=== PATIENT | female | born 1970 | race Caucasian/White ===

== ENCOUNTER 2018-02-17 15:06 | Outpatient (CLI) | payer MEDICARE ==
--- NOTE | 2018-02-17 16:01 | MMO ---
BILATERAL DIGITAL SCREENING MAMMOGRAMS: Date: 02/17/18 HISTORY: 47-year-old female presents for digital screening mammogram. COMPARISON: 10/07/16, 04/25/15, and 11/29/12. FINDINGS: This patient's mammogram was interpreted with the assistance of computer-aided detection. The breasts are heterogeneously dense, which can obscure small masses. There are small, circumscribed , stable nodular densities in both breasts, which appear benign. There are scattered typically benign calcifications. In the right breast, centrally noted on the CC projection and probably upper aspect as seen on the ML O projection, is a focus of microcalcifications. Additional imaging with mag compression spot views i s recommended for further assessment of this. IMPRESSION: BIRADS 0: Incomplete: Need Additional Imaging Evaluation and/or Prior Mammograms for Comparison Follow-up right unilateral diagnostic mammogram, including mag compression spot views in CC, ML, and mediolateral oblique views, and non-mag 90 degree mediolateral views are recommended for further asse ssment to evaluate focus of microcalcifications in what appears to be the upper aspect of the right b reast. The facility will notify patient of need for additional imaging services. POS: [facility]
== END 2018-02-17 15:07 | disposition home or self-care (01) ==
LOC: SCSMAMMO 15:06
PROVIDERS: ATTEND Family Medicine
DX: Z12.31 Encounter for screening mammogram for malignant neoplasm of breast (principal)
CPT/HCPCS: 77067

== ENCOUNTER 2018-03-01 13:23 | Outpatient (CLI) | payer MEDICARE | END 2018-03-01 13:24 | disposition home or self-care (01) | LOC: BICMAMMO 13:23 | PROVIDERS: ATTEND Family Medicine | DX: R92.1 Mammographic calcification found on diagnostic imaging of breast (principal) | CPT/HCPCS: 77065; G0279 ==

== ENCOUNTER → 2018-03-03 | Day surgery (SDC) | payer MEDICARE ==
--- NOTE | 2018-03-03 10:14 | MMO ---
RIGHT BREAST STEREOTACTIC BIOPSY: Date: 03/03/18 HISTORY: Calcifications in the 12:00 position, middle depth, right breast, recommended for biopsy. TECHNIQUE: After informed consent was obtained, the patient was prepped and draped in the normal sterile fashion . Local anesthesia was obtained with 1% Xylocaine mixed with sodium bicarb. For this biopsy, a CC mone damian was chosen. The area of calcifications was stereotactically localized. Pre and post fire images show good positioning of the needle. Biopsies were obtained at 12:00, 2:00, 4:00, 6:00, 8:00, and 12:00 positions. The post biopsy specime n only showed one calcification and therefore a series of 6 additional biopsies were performed using the 10 gauge vacuum-assisted stereotactic needle. On this biopsy, only a couple of additional calcifi cations were obtained. Therefore, an additional set of three biopsies from 9:00-3:00 were performed, which did not yield any calcifications, and so an additional set from 3:00-9:00 were performed. On th is set of biopsies, there were multiple calcifications obtained. The biopsy clip was deployed. Hemost asis was obtained without difficulty. The patient tolerated the procedure well. There were no immedia te complications. IMPRESSION: Successful stereotactically directed biopsy of right breast calcifications. POS: [facility]
--- NOTE | 2018-03-03 10:38 | MMO ---
RIGHT UNILATERAL MAMMOGRAM: Date: 03/03/18 HISTORY: Post biopsy mammogram. FINDINGS: Biopsy clip is in the region of previous calcifications. Calcifications have almost completely been r emoved. IMPRESSION: Successful stereotactic biopsy of breast calcifications. POS: [facility]
--- NOTE | 2018-03-03 10:50 | MMO ---
SPECIMEN RADIOGRAPH: Date: 03/03/18 HISTORY: Post biopsy specimens. FINDINGS: A total of four specimen radiographs were obtained for this examination. The initial radiograph shows what appears to be one calcification with 2-3 tiny punctate calcifications on the second specimen, n o calcifications on the third, and two prominent groups of calcifications on the final specimen. IMPRESSION: Breast calcifications identified on breast specimen. POS: [facility]
== END ==
LOC: MAMMO 07:00
PROVIDERS: ATTEND Family Medicine
PROC: 0HBT3ZX Excision of Right Breast, Percutaneous Approach, Diagnostic (ICD-10-PCS; principal; 2018-03-03)
DX: R92.0 Mammographic microcalcification found on diagnostic imaging of breast (principal)
CPT/HCPCS: 19081; 76098; 88305

== ENCOUNTER 2018-08-04 14:16 | Outpatient (CLI) | payer OTHER ==
--- NOTE | 2018-08-04 16:28 | ULT ---
ULTRASOUND WITH DOPPLER DUPLEX VENOUS LOWER EXTREMITY LEFT: HISTORY: 47-year-old female with left leg pain. TECHNIQUE: Color flow Doppler, spectral waveform analysis of pulsed Doppler, and clement-scale imaging with selina placido and augmentation, were used to evaluate the left common femoral, femoral, popliteal, posterior t ibial, and superficial femoral, veins; and the proximal portions of the profunda femoral and greater saphenous, veins. FINDINGS: There is normal compressibility, demonstration of blood flow by color Doppler and pulsed Doppler, and response to augmentation, in all interrogated veins. There is a large, smoothly well circumscribed lentiform mass in the posterior soft tissues of the irineo f, that measures approximately 9 x 4.5 x 2 cm. No interval blood flow is demonstrated by color Dopple r. It has mixed internal echogenicity, consisting of anechoic regions interspersed with larger areas of low-intermediate echogenicity material. Its upper portion is from the posterior knee, and it exten ds down distally into the calf. IMPRESSION: 1. No deep vein thrombosis in the left lower extremity. 2. Large mass in the posterior left calf. This could be a hematoma. Perhaps it represents a hemorrha gic Hamilton's cyst from the popliteal fossa, that has dissected and migrated inferiorly in the left pos terior calf. jn[] POS: [facility]
== END 2018-08-04 14:17 | disposition home or self-care (01) ==
LOC: BICULT 14:16
PROVIDERS: ATTEND Family Medicine
DX: M79.605 Pain in left leg (principal); R22.42 Localized swelling, mass and lump, left lower limb

== ENCOUNTER 2019-03-14 14:10 | Outpatient (CLI) | payer MEDICARE ==
--- NOTE | 2019-03-14 14:52 | MMO ---
Bilateral MAMMO Bilat Diag [facility]. CLINICAL HISTORY: Patient is 48 years old and is seen for diagnostic exam. The patient has the following family history of breast cancer: sister, malignant (generic). The patient has no personal history of cancer. The patient has a history of right Stereotatic Biopsy in 2018 - benign. VIEWS: The views performed were: bilateral craniocaudal with tomosynthesis; bilateral mediolateral oblique with tomosynthesis; and bilateral mediolateral with tomosynthesis. FILMS COMPARED: The present examination has been compared to prior imaging studies performed at [facility] on 03/01/2018 and 03/03/2018. This study has been interpreted with the assistance of computer-aided detection. MAMMOGRAM FINDINGS: The breasts are heterogeneously dense, which could obscure a lesion on mammography. Finding 1: There are benign appearing calcifications seen in both breasts. Finding 2: There is a biopsy clip seen in the right breast. There are no suspicious masses, suspicious calcifications, or new areas of architectural distortion. IMPRESSION: THERE IS NO MAMMOGRAPHIC EVIDENCE OF MALIGNANCY. A ROUTINE FOLLOW-UP MAMMOGRAM IN 1 YEAR IS RECOMMENDED. THE RESULTS OF THIS EXAM WERE SENT TO THE PATIENT. ACR BI-RADS Category 2 - Benign finding MAMMOGRAPHY NOTE: 1. A negative mammogram report should not delay a biopsy if a dominant of clinically suspicious mass is present. 2. Approximately 10% to 15% of breast cancers are not detected by mammography. 3. Adenosis and dense breasts may obscure an underlying neoplasm. Reported by: BETO PRATT MD Electonically Signed: [id number]
== END 2019-03-14 14:11 | disposition home or self-care (01) ==
LOC: BICMAMMO 14:10
PROVIDERS: ATTEND Family Medicine
DX: R92.8 Other abnormal and inconclusive findings on diagnostic imaging of breast (principal); Z80.3 Family history of malignant neoplasm of breast
CPT/HCPCS: 77066; G0279

== ENCOUNTER 2019-03-14 15:02 | Outpatient (CLI) | payer OTHER ==
--- NOTE | 2019-03-14 16:08 | RAD ---
EXAM: XR Lumbar Spine Min 4 View PROVIDED CLINICAL HISTORY: Back pain COMPARISON: None FINDINGS: 5 nonrib-bearing lumbar-type vertebral bodies are demonstrated. Lumbar alignment appears normal. No e vidence for abnormal translational motion with flexion and extension. Bilateral pedicle screws and vertical interconnecting rods span L4-S1. There is lucency about the S1 pedicle screws. Laminectomy c hanges are seen at L4 and L5. Dorsal column stimulator lead wires are demonstrated without apparent generator. Vertebral body heights appear preserved. Pedicles appear intact. IMPRESSION: Lumbar spine postoperative change with nonspecific lucency about the S1 pedicle screws. Loosening is not excluded.
== END 2019-03-14 15:03 | disposition home or self-care (01) ==
LOC: BICRAD 15:02
PROVIDERS: ATTEND Pain Medicine Pain Medicine
DX: M54.5 Low back pain (principal); M96.1 Postlaminectomy syndrome, not elsewhere classified; M47.16 Other spondylosis with myelopathy, lumbar region; Z98.890 Other specified postprocedural states
CPT/HCPCS: 72110

== ENCOUNTER 2019-07-29 10:56 | Outpatient (CLI) | payer MEDICARE | END 2019-07-29 10:57 | disposition home or self-care (01) | LOC: CTENTCT 10:56 | PROVIDERS: ATTEND Specialist | DX: J32.9 Chronic sinusitis, unspecified (principal) | CPT/HCPCS: 70486 ==

== ENCOUNTER 2019-08-25 11:33 | Day surgery (SDC) | payer MEDICARE ==
[2019-08-24 16:16] VITALS: BMI 35.4
[~2019-08-25 11:33] MED LIST: Dexamethasone 20 MG/5 ML VIAL ONE; Glycopyrrolate 0.2 MG/ML 5 ML SYRINGE ONE; Lidocaine 1% PF 5 ML VIAL ONE; PROPOFOL 200 MG/20 ML VIAL ONE; Rocuronium Bromide 10 MG/ML (10ML VIAL) ONE
[2019-08-25] MEDS ORDERED: AFRIN NASAL MIST 15 ML BOT ONE ×2 (12:38→12:55)
[2019-08-25] MEDS ORDERED: Midazolam HCl 2 mg/2 ml Vial ONE (12:51)
[2019-08-25] MEDS ORDERED: Fentanyl 100 MCG/2 ML VIAL ONE ×2 (12:51→14:37)
[2019-08-25] MEDS ORDERED: Lidocaine 1% w/Epinephrine 1:100K 20 ML VIAL ONE (12:55)
[2019-08-25] MEDS ORDERED: Bacitracin Zinc Ointment 30 gm TUBE ONE (12:55)
[2019-08-25] MEDS ORDERED: EPINEPHrine 1 MG/ML AMP ONE (12:55)
[2019-08-25] MEDS ORDERED: Morphine 2 MG/ML SYRINGE ONE (15:37)
[2019-08-25] MEDS ORDERED: Promethazine HCl 25 MG/ML VIAL ONE (15:38)
--- NOTE | 2019-08-26 11:16 | OP ---
DATE OF PROCEDURE: 08/25/2019 PREOPERATIVE DIAGNOSES: 1. Rhinogenic headache. 2. Severe left septal deformity and spur. 3. Hypertrophic inferior turbinates. POSTOPERATIVE DIAGNOSES: 1. Rhinogenic headache. 2. Severe left septal deformity and spur. 3. Hypertrophic inferior turbinates. PROCEDURES PERFORMED: 1. Septoplasty. 2. Bilateral nasal endoscopy with submucosal resection of inferior turbinates. FINDINGS: The patient had a severe septal spur that was indenting severely into the lateral nasal wall of the inferior turbinates. DESCRIPTION OF PROCEDURE: SEPTOPLASTY: After local anesthesia was infiltrated into the submucoperichondrial plane, a standard Gerton incision was made with a #15 blade down to the level of the septal cartilage. The caudal elevator was used to elevate the mucoperichondrium from the underlying cartilage. We then proceeded beyond the bony cartilaginous junction and elevated the bony periosteum as well. Great attention was paid to the spur to prevent rent formation in the septal flap. A transcartilaginous incision was then made, while preserving an adequate dorsal and caudal cartilaginous strut for tip support. The deformed cartilage was removed and disarticulated from the bony cartilaginous junction and maxillary crest. This was placed in saline and would later be crushed and returned to the mucoperichondrial envelope. We then elevated the contralateral periosteum from the bony cartilaginous region and removed the deformed portions of the bone and bony spurs. The cartilage was then crushed and placed back into the mucoperichondrial envelope and the mucosa was re-approximated with a quilting stitch composed of rapidly absorbent gut suture. The Gerton incision was also closed with interrupted gut suture. At the completion of the case, Galdamez splints were placed and suture secured to the caudal septum. BILATERAL NASAL ENDOSCOPY WITH SUBMUCOSAL RESECTION OF INFERIOR TURBINATES: After consent was obtained, the patient was identified, brought to the operating room, and placed on the operating room table in the supine position. Consent was obtained, notifying the patient of the possibility of additional infections, bleeding, brain injury, and eye/orbital injury. The patient was placed on the operating room table, and general endotracheal anesthesia and intravenous access was obtained. The patient was then positioned, prepped and draped for endoscopic sinus surgery. Nasal preparation included trimming nasal vestibular hairs and spraying in topical Afrin. We then placed Afrin topical solution on nasal pledgets and strategically located them intranasally. The perinasal mucosa was injected with 1% lidocaine with 1:100,000 epinephrine in the submucoperichondrial plane of the septum, lateral nasal wall, and anterior to the uncinate. The patient was then prepped and draped in a sterile fashion and positioned for endoscopic sinus surgery. With the 0-degree endoscope, the patient underwent systematic nasal endoscopy. There were no suspicious internasal masses or lesions identified. We then focused our attention to the osteomeatal complex region under the middle turbinate. The inferior turbinates were visualized with a 0 degree endoscope and outfractured with a Veronica elevator. The inferior medial aspect was cauterized with the electrocautery. Hemostasis was obtained . After adequate airway was established, we turned our attention to the contralateral side and used a similar procedure. Again, a Veronica elevator was used to outfracture inferior turbinates under endoscopic visualization. With a suction cautery, the free inferior medial aspect was cauterized under direct visualization along the length of the inferior turbinate. At this point, we then turned our attention to the contralateral side and proceeded with endoscopic sinus surgery. At the completion of the case, Rice keel splints were placed in the ethmoid cavities after the ethmoidectomy. There were no complications. The patient tolerated the procedure well and was discharged to the recovery room in stable condition prior to return to the preoperative day stay with ultimate discharge home. Prescriptions for pain medication and antibiotics were provided. The patient received intramuscular Depo-Medrol during the case. Job ID: [id number]
== END 2019-08-25 18:20 | disposition home or self-care (01) ==
LOC: SDC 11:33
PROVIDERS: ATTEND Specialist
PROC: 09BL8ZZ Excision of Nasal Turbinate, Via Natural or Artificial Opening Endoscopic (ICD-10-PCS; principal; 2019-08-25)
PROC: 09BM8ZZ Excision of Nasal Septum, Via Natural or Artificial Opening Endoscopic (ICD-10-PCS; 2019-08-25)
DX: J32.9 Chronic sinusitis, unspecified (principal); J34.2 Deviated nasal septum; J34.3 Hypertrophy of nasal turbinates; J34.89 Other specified disorders of nose and nasal sinuses; F17.210 Nicotine dependence, cigarettes, uncomplicated; I10 Essential (primary) hypertension; F41.9 Anxiety disorder, unspecified; R73.03 Prediabetes; F32.9 Major depressive disorder, single episode, unspecified; Z79.899 Other long term (current) drug therapy; Z91.040 Latex allergy status; Z91.041 Radiographic dye allergy status; Z91.048 Other nonmedicinal substance allergy status
CPT/HCPCS: J0171; J1100; J2001; J2250; J2270; J2550; J2704; J3010

== ENCOUNTER 2020-07-24 10:34 | Outpatient (CLI) | payer MEDICARE ==
--- NOTE | 2020-07-24 11:13 | MMO ---
Bilateral MAMMO Bilat Screen [facility]. CLINICAL HISTORY: Patient is 49 years old and is seen for screening. The patient has the following family history of breast cancer: sister, malignant (generic). The patient has no personal history of cancer. The patient has a history of right Stereotatic Biopsy in 2018 - benign. VIEWS: The views performed were: bilateral craniocaudal with tomosynthesis and bilateral mediolateral oblique with tomosynthesis. FILMS COMPARED: The present examination has been compared to prior imaging studies performed at [facility] on 03/03/2018 and 03/14/2019. This study has been interpreted with the assistance of computer-aided detection. MAMMOGRAM FINDINGS: The breasts are heterogeneously dense, which could obscure a lesion on mammography. Benign calcifications are noted bilaterally. Right biopsy clip. There are no suspicious masses, suspicious calcifications, or new areas of architectural distortion. IMPRESSION: THERE IS NO MAMMOGRAPHIC EVIDENCE OF MALIGNANCY. A ROUTINE FOLLOW-UP MAMMOGRAM IN 1 YEAR IS RECOMMENDED. THE RESULTS OF THIS EXAM WERE SENT TO THE PATIENT. ACR BI-RADS Category 2 - Benign finding MAMMOGRAPHY NOTE: 1. A negative mammogram report should not delay a biopsy if a dominant of clinically suspicious mass is present. 2. Approximately 10% to 15% of breast cancers are not detected by mammography. 3. Adenosis and dense breasts may obscure an underlying neoplasm. Reported by: ERIKA SOTO MD Electonically Signed: [id number]
== END 2020-07-24 10:35 | disposition home or self-care (01) ==
LOC: BICMAMMO 10:34
PROVIDERS: ATTEND Family Medicine
DX: Z12.31 Encounter for screening mammogram for malignant neoplasm of breast (principal); Z80.3 Family history of malignant neoplasm of breast; Z91.89 Other specified personal risk factors, not elsewhere classified
CPT/HCPCS: 77063; 77067

== ENCOUNTER 2022-05-14 07:29 | Day surgery (SDC) | payer MEDICARE ==
[2022-05-12 15:19] VITALS: BMI 33.1
[2022-05-14 07:58] VITALS: BP 169/104
[2022-05-14] MEDS ORDERED: Iopamidol-M 300 61% 15 ML VIAL ONE (09:44)
== END 2022-05-14 10:00 | disposition home or self-care (01) ==
LOC: RAD 07:29
PROVIDERS: ATTEND Neurological Surgery
PROC: B01B1ZZ Fluoroscopy of Spinal Cord using Low Osmolar Contrast (ICD-10-PCS; principal; 2022-05-14)
DX: M54.2 Cervicalgia (principal); M54.50 Low back pain, unspecified; M47.812 Spondylosis without myelopathy or radiculopathy, cervical region; M48.02 Spinal stenosis, cervical region; M25.78 Osteophyte, vertebrae; E04.1 Nontoxic single thyroid nodule; Z79.891 Long term (current) use of opiate analgesic; Z79.899 Other long term (current) drug therapy; Z91.040 Latex allergy status; Z91.041 Radiographic dye allergy status; Z91.048 Other nonmedicinal substance allergy status; Z96.82 Presence of neurostimulator; Z98.1 Arthrodesis status
CPT/HCPCS: 62305; 72050; 72126; 72132; Q9967

== ENCOUNTER 2023-11-11 10:49 | Outpatient (CLI) | payer MEDICARE | END 2023-11-11 10:50 | disposition home or self-care (01) | LOC: BICMAMMO 10:49 | PROVIDERS: ATTEND Family Medicine | DX: Z12.31 Encounter for screening mammogram for malignant neoplasm of breast (principal); Z80.3 Family history of malignant neoplasm of breast; Z91.89 Other specified personal risk factors, not elsewhere classified | CPT/HCPCS: 77063; 77067 ==